=== PATIENT | female | born 1950 | race Caucasian/White ===

== ENCOUNTER 2017-10-19 18:45 | Emergency (ER) | payer MEDICARE, BC ==
[~2017-10-19] VITALS: Ht 162.6 cm; Wt 98.9 kg
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
--- NOTE | 2017-10-19 19:20 | NUR ---
AT BEDSIDE FOR EVAL.
--- NOTE | 2017-10-19 19:54 | NUR ---
XRAY AT BEDSIDE.
--- NOTE | 2017-10-19 20:23 | NUR ---
PT TO CT VIA WC. VSS.
[2017-10-19] MEDS ORDERED: TRAMADOL HCL 50 MG TABLET PO ONE (20:30)
[2017-10-19 20:51] LABS: APPEARANCE,URINE Clear (CLEAR); BILIRUBIN,URINE Negative (NEGATIVE); BLOOD, URINE Trace-lysed Ery/uL (NEGATIVE); COLOR,URINE Yellow (YELLOW); KETONES,URINE Negative (NEGATIVE); LEUKOCYTE ESTERASE ,URINE Negative (NEGATIVE); NITRITE, URINE Negative (NEGATIVE); PH,URINE 5.5 (5.0-8.0); PROTEIN,URINE Negative (NEGATIVE); UGLUCOSE Negative (NEGATIVE); UROBILINOGEN,URINE 0.2 EU/dL (0.2)
[2017-10-19 21:00] LABS: BACTERIA,URINE Rare /HPF (None Seen); SQUAMOUS EPITHELIAL CELL,UR Rare /HPF (None Seen); WBC,URINE NONE SEEN /HPF (0-3)
--- NOTE | 2017-10-19 21:14 | NUR ---
PT SPEAKING WITH FRIEND AT BEDSIDE. VSS. AWAITING DISPOSTION FROM MD.
--- NOTE | 2017-10-19 21:48 | NUR ---
Patient discharged to home in stable condition. Written and verbal after care instructions given. Patient verbalizes understanding of instruction. Patient ambulatory with a steady gait.
[2017-10-19 21:49] VITALS: BP 148/73
== END 2017-10-19 21:50 | disposition other institution (70) ==
LOC: ER 18:49
DX: S63.502A Unspecified sprain of left wrist, initial encounter (principal); S09.90XA Unspecified injury of head, initial encounter; V89.2XXA Person injured in unspecified motor-vehicle accident, traffic, initial encounter; Y93.89 Activity, other specified; Y92.411 Interstate highway as the place of occurrence of the external cause; Y99.8 Other external cause status
CPT/HCPCS: 70450-TC; 73110; 81000-TC; A4606; Z7610

== ENCOUNTER 2019-01-15 19:39 | Inpatient (IN) | payer MEDICARE, BC ==
[~2019-01-15] VITALS: Ht 167.6 cm; Wt 93.4 kg
--- NOTE | 2019-01-15 20:00 | NUR ---
PT CAME TO EMERGENCY DEPT. COMPLAINING OF SOB, EPISTAXIS FOLLOWING CHEMOTHERAPY. PT AXO4. PT PUT ON THE MONITOR AND PULSE OX. PENDING EVAL FROM ER .
--- NOTE | 2019-01-15 20:08 | NUR ---
ANJU GARZON AT BEDSIDE.
--- NOTE | 2019-01-15 20:27 | NUR ---
EKG AT BEDSIDE.
[2019-01-15] MEDS ORDERED: IV NS 0.9% 1,000 ML BAG IV ONE (20:30)
--- NOTE | 2019-01-15 20:41 | NUR ---
SALES RECEPTIONIST AT BEDSIDE.
[2019-01-15 20:45] LABS: BASOPHILS # (AUTO) 0.1 /CMM (0.0-0.2); BASOPHILS % (AUTO) 1.2 % (0.0-2.0); EOSINOPHILS % (AUTO) 0.8 % (0.0-6.0); HEMATOCRIT 29 % (33-45); HEMOGLOBIN 9.6 g/dL (11.5-14.8); LYMPHOCYTES # (AUTO) 1.3 /CMM (0.8-4.8); LYMPHOCYTES % (AUTO) 14.3 % (20.0-44.0); MEAN CORPUSCULAR HGB CONC 34 g/dl (31.0-36.0); MEAN CORPUSCULAR VOLUME 98 fL (82-100); MONOCYTES # (AUTO) 1.1 /CMM (0.1-1.30); MONOCYTES % (AUTO) 11.8 % (2.0-12.0); NEUTROPHILS # (AUTO) 6.6 /CMM (1.8-8.9); NEUTROPHILS % (AUTO) 71.9 % (43.0-81.0); PLATELET COUNT (AUTO) 241 /CMM (150-450); RED BLOOD CELL COUNT(AUTO) 2.94 MIL/uL (4.0-5.2); WHITE BLOOD COUNT (AUTO) 9.2 K/uL (4.3-11.0)
--- NOTE | 2019-01-15 20:45 | NUR ---
PT REFUSES CHEST XRAY. ER AWARE.
[2019-01-15 20:57] LABS: CALCIUM, SERUM 8.9 mg/dL (8.5-10.1); CARBON DIOXIDE 29 mmol/L (21-32); CHLORIDE 105 mmol/L (98-107); CREATININE 0.9 mg/dL (0.6-1.3); GLUCOSE 117 mg/dL (74-106); POTASSIUM 4.3 mmol/L (3.5-5.1); SODIUM SERUM 141 mmol/L (136-145); UREA NITROGEN, BLOOD 11 mg/dL (7-18)
--- NOTE | 2019-01-15 21:00 | NUR ---
PT REFUSING CT W CONTRAST. ER AWARE.
[2019-01-15 21:11] LABS: B-TYPE NATRIURETIC PEPTIDE 104 PG/ML (0-125)
[2019-01-15] MEDS ORDERED: CT SWABBABLE VALVE TRANS SET 1 EA INFUS.SET MC ONE (21:17)
[2019-01-15] MEDS ORDERED: IOHEXOL-350 100 ML VIAL IV ONE (21:17)
[2019-01-15] MEDS ORDERED: IV NS 0.9% 250 ML IV ONE (21:17)
--- NOTE | 2019-01-15 22:41 | NUR ---
Frantz fu in [facility] - 01/15/19 at 2242 by ARTI SPOKE TO [facility], WAITING ON ADMITTING DR ZALDIVAR TO ACCEPT
--- NOTE | 2019-01-15 22:52 | NUR ---
Frantz fu in [facility] - 01/15/19 at 2252 by ARTI CALLED [facility] FOR BED. AWAITING HER CALL WITH A BED
--- NOTE | 2019-01-15 22:53 | NUR ---
CALLED [facility] FOR A BED. AWAITING HER CALL
--- NOTE | 2019-01-15 23:21 | NUR ---
REPORT GIVEN TO ALLISON KUMAR RN FOR CHAS.
[2019-01-15 23:45] VITALS: BP 168/87
[2019-01-16] VITALS: BP 141/78
[2019-01-16] MEDS ORDERED: HYDROCODONE/APAP 5/325MG 1 EACH TABLET PO PRN (01:00)
[2019-01-16] MEDS ORDERED: ZOLPIDEM TARTRATE 5 MG TABLET PO PRN (01:00)
[2019-01-16] MEDS ORDERED: ACETAMINOPHEN 325 MG TABLET PO PRN ×2 (01:00→02:00)
[2019-01-16] MEDS ORDERED: MAGNESIUM HYDROXIDE 30 ML UDC PO PRN (01:00)
[2019-01-16] MEDS ORDERED: ONDANSETRON HCL/PF 4 MG/2 ML VIAL IVP PRN (01:00)
[2019-01-16] MEDS ORDERED: Z GUARD REMEDY 2 OZ OINT TP PRN (01:00)
[2019-01-16] MEDS ORDERED: DOCUSATE SODIUM 100 MG CAPSULE PO PRN (02:00)
[2019-01-16 04:00] VITALS: BP 125/70
[2019-01-16] MEDS ORDERED: LORATADINE 10 MG TABLET ONE (06:12)
[2019-01-16] MEDS: LORATADINE 10 MG TABLET PO SCH (06:15)
[2019-01-16 06:40] LABS: BASOPHILS # (AUTO) 0.1 /CMM (0.0-0.2); BASOPHILS % (AUTO) 0.6 % (0.0-2.0); EOSINOPHILS % (AUTO) 0.6 % (0.0-6.0); HEMATOCRIT 27 % (33-45); HEMOGLOBIN 9.5 g/dL (11.5-14.8); LYMPHOCYTES % (AUTO) 10.1 % (20.0-44.0); MEAN CORPUSCULAR HGB CONC 35 g/dl (31.0-36.0); MEAN CORPUSCULAR VOLUME 98 fL (82-100); MONOCYTES % (AUTO) 10.4 % (2.0-12.0); NEUTROPHILS # (AUTO) 7.4 /CMM (1.8-8.9); NEUTROPHILS % (AUTO) 78.3 % (43.0-81.0); PLATELET COUNT (AUTO) 204 /CMM (150-450); RED BLOOD CELL COUNT(AUTO) 2.79 MIL/uL (4.0-5.2); WHITE BLOOD COUNT (AUTO) 9.5 K/uL (4.3-11.0)
--- NOTE | 2019-01-16 06:45 | NUR ---
EMERGENCY MANAGEMENT CONSULTANT NOTES AWAKE & RESPONSIVE. NOT IN ANY DISTRESS. NO SOB NOTED. DENIES ANY PAIN OR DISCOMFORT AT THIS TIME. ON TELE SR @ 68 WITH IV-HL PATENT & INTACT. CALL LIGHT WITHIN REACH. BED IN LOWEST POSITION. SR UP X 2 FOR SAFETY. WILL ENDORSE TO NEXT SHIFT.
[2019-01-16 06:50] LABS: CALCIUM, SERUM 8.9 mg/dL (8.5-10.1); CREATININE 0.9 mg/dL (0.6-1.3); PHOSPHORUS 4.4 mg/dL (2.5-4.9); POTASSIUM 4.5 mmol/L (3.5-5.1)
[2019-01-16 08:00] VITALS: BP 138/73
[2019-01-16] MEDS ORDERED: OCTR50AM IJ (08:08)
[2019-01-16] MEDS ORDERED: [UNRECOGNIZED DRUG - CODE] IV (08:08)
[2019-01-16] MEDS ORDERED: CARB10VI IV (08:08)
[2019-01-16] MEDS ORDERED: ROSU5TAB12 PO (08:08)
[2019-01-16] MEDS ORDERED: PEGF6SYR SQ (08:08)
--- NOTE | 2019-01-16 08:20 | NUR ---
PT. REFUSING CTA CHEST AND CHEST XRAY CHUY IS AWARE.
[2019-01-16] MEDS: ENSURE ENLIVE 237 ML LIQUID (VANILLA) PO SCH (08:23)
--- NOTE | 2019-01-16 08:44 | NUR ---
rn note pt refused this am CXR and ct scan stating "I do not want to get contrast twice, I prefer to do xray and cat scan in [facility]". will notify md and follow up.
--- NOTE | 2019-01-16 10:04 | NUR ---
WOUND CARE CONSULT: PT PRESENTS AMBULATORY AND CONTINENT WITH TRANSPARENT DRESSING TO RT CHEST PORTACATH SITE. PT STATES THAT SHE REQUESTED TRANSPARENT DRESSING AND REFUSED TO HAVE IT REMOVED. DEFER TO MD FOR PORTACATH SITE. NO DRAINAGE NOTED. WILL SEE PRN.
[2019-01-16 16:00] VITALS: BP 140/73
--- NOTE | 2019-01-16 16:00 | NUR ---
RN NOTE PT'S IV SITE WAS REMOVED EARLIER DUE TO PAIN, AND LATER REFUSED NEW IV INSERTION. PT HAS ADEQUATE PO INTAKE. WILL MONITOR PT.
[2019-01-16] MEDS: IV NS 0.9% 1,000 ML IV PRN (18:35)
--- NOTE | 2019-01-16 19:24 | NUR ---
MS RN RECEIVE PT IN BED. A/O X 3. RESPIRATIONS EVEN AND UNLABORED, NO SOB NOTED, NO DISTRESS, SAFETY MEASURES IN PLACE. WILL CONTINUE TO MONITOR.
[2019-01-16 20:00] VITALS: BP 132/60
--- NOTE | 2019-01-16 22:10 | NUR ---
PT REFUSED IV INSERTION, ASKED PT MULTIPLE TIMES PT STILL REFUSED "PER PT I DONT NEED IT" DESPITE EXPLAINING RISKS AND BENEFITS. HAS ADEQUATE PO INTAKE. EDUCATED TO STAY HYDRATED. VERBALIZED UNDERSTANDING. HOSPITALIST AWARE
[2019-01-17 05:00] VITALS: BP 116/69
--- NOTE | 2019-01-17 05:00 | NUR ---
OFFERED IV INSERTION AGAIN PT AGREED. INSERTED IV TO LFA 22 INTACT AND PATENT.
[2019-01-17] MEDS: IV NS 0.9% 1,000 ML IV PRN (05:18)
--- NOTE | 2019-01-17 06:12 | NUR ---
RN CLOSING NOTE ASLEEP AND EASILY AWAKEN.. NOT IN DISTRESS, STABLE. NEEDS ATTENDED AND ANTICIPATED, KEPT CLEAN AND DRY AND COMFORT. REPOSITIONED EVERY 2 HOURS. GOOD SKIN CARE PROVIDED, NURSING CARE RENDERED, SAFETY MEASURES IN PLACE, BED IN LOW LOCKED POSITION, CALL LIGHT WITHIN EASY REACH. ENDORSE TO NEXT SHIFT CONTINUITY OF CARE.
--- NOTE | 2019-01-17 07:00 | NUR ---
RN OPENING NOTES PT AWAKE AND RESTING IN BED. NO COMPLAINTS OF PAIN, SOB OR DISTRESS AT THIS TIME. PT REQUESTED CLARITIN, WILL FOLLOW UP. PT HAS A RIGHT CHEST WALL RICK CATH. PT REQUESTING TRANSFER TO [facility] OR WILL LEAVE HOSPITAL AMA. INFORMED PT THAT CASE MANAGEMENT WILL FOLLOW UP WITH TRANSFER TO [facility]. SAFETY PRECAUTIONS IN PLACE, BED IN LOWEST LOCKED POSITION, X2 SIDERAILS UP AND CALL LIGHT WITHIN REACH WILL CONTINUE TO MONITOR.
[2019-01-17] MEDS: LORATADINE 10 MG TABLET PO SCH (07:52)
[2019-01-17 08:00] VITALS: BP 128/52
[2019-01-17] MEDS: ENSURE ENLIVE 237 ML LIQUID (VANILLA) PO SCH (09:50)
--- NOTE | 2019-01-17 11:20 | NUR ---
RN NOTES PT VITAL SIGNS STABLE WHEN PATIENT LEFT THE UNIT AMA. PER ALETA KANG NP, HE WOULD LIKE TO TREAT PT FOR ELEVATED D DIMER LAB RESULT. PT STATED THAT SHE WOULD LIKE TO BE TREATED AT [facility], EXPLAINED THAT THE PATIENT MAY HAVE TO WAIT AWHILE FOR A BED AT [facility], PT DECIDED TO LEAVE AGAINST MEDICAL ADVICE. PT SIGNED AMA FORM. ALL DISCHARGE PAPER WORK SIGNED, COPIED AND SENT HOME WITH PATIENT. PATIENT REFUSED PHOTOGRAPH OF RIGHT CHEST WALL PORTACATH. IV REMOVED AT DISCHARGE. PT ACCOMPANIED OFF THE UNIT VIA GURNEY BY RN, AND STUDENT NURSE AT 1120. PATIENT'S SISTER KRYSTLE PICKED PATIENT UP AND DROVE HOME IN PRIVATE CAR.
== END 2019-01-17 11:20 | disposition left against medical advice (07) | DRG 176 ==
LOC: ER 19:54 → TELE1 23:37 → MEDSG1 01-16 08:50
PROVIDERS: ADMIT Nurse Practitioner Acute Care; ATTEND Nurse Practitioner Acute Care
DX: I26.99 Other pulmonary embolism without acute cor pulmonale (principal); C56.9 Malignant neoplasm of unspecified ovary; D68.59 Other primary thrombophilia; C48.2 Malignant neoplasm of peritoneum, unspecified; D63.8 Anemia in other chronic diseases classified elsewhere; Z90.710 Acquired absence of both cervix and uterus; Z86.711 Personal history of pulmonary embolism; R04.0 Epistaxis; K59.00 Constipation, unspecified; Z98.890 Other specified postprocedural states; Z79.899 Other long term (current) drug therapy; Z85.44 Personal history of malignant neoplasm of other female genital organs; Z92.21 Personal history of antineoplastic chemotherapy; Z79.01 Long term (current) use of anticoagulants; E66.9 Obesity, unspecified; Z68.33 Body mass index [BMI] 33.0-33.9, adult; C57.00 Malignant neoplasm of unspecified fallopian tube
CPT/HCPCS: 36415; 80048-TC; 80061-TC; 83735-TC; 83880; 84100-TC; 84484-TC; 85025-TC; 85378-TC; 87081-TC; 93307-TC; G0378; J7030; J7050; Q9967

== ENCOUNTER 2020-03-27 17:57 | Inpatient (IN) | payer MEDICARE, BC ==
[~2020-03-27] VITALS: Ht 167.6 cm; Wt 77.6 kg
[~2020-03-27 17:57] MED LIST: CARB10VI IV; OCTR50AM IJ; PEGF6SYR SQ; ROSU5TAB13 PO; [UNRECOGNIZED DRUG - CODE] IV
--- NOTE | 2020-03-27 18:00 | NUR ---
mello, from home, had syncopal episode, nausea, and weak. Patient a/ox4, breathing even and unlabored, no sob noted. Needs attended. Kept comfortable.
[2020-03-27] MEDS ORDERED: ONDANSETRON HCL/PF 4 MG/2 ML VIAL ONE (18:13)
[2020-03-27 18:27] LABS: LYMPHOCYTES # (AUTO) 0.4 /CMM (0.8-4.8); MONOCYTES # (AUTO) 0.1 /CMM (0.1-1.30); NEUTROPHILS # (AUTO) 0.6 /CMM (1.8-8.9); NEUTROPHILS % (AUTO) 50.4 % (43.0-81.0)
[2020-03-27] MEDS ORDERED: IV NS 0.9% 1,000 ML BAG IV ONE (18:30)
[2020-03-27] MEDS ORDERED: ONDANSETRON HCL/PF 4 MG/2 ML VIAL IVP ONE (18:30)
[2020-03-27 18:31] LABS: BASOPHILS % (AUTO) 1.1 % (0.0-2.0); EOSINOPHILS % (AUTO) 0.9 % (0.0-6.0); HEMATOCRIT 29 % (33-45); HEMOGLOBIN 10.3 g/dL (11.5-14.8); LYMPHOCYTES % (AUTO) 40.2 % (20.0-44.0); MEAN CORPUSCULAR HGB CONC 35 g/dl (31.0-36.0); MEAN CORPUSCULAR VOLUME 107 fL (82-100); MONOCYTES % (AUTO) 7.4 % (2.0-12.0); RED BLOOD CELL COUNT(AUTO) 2.73 MIL/uL (4.0-5.2)
[2020-03-27 18:35] LABS: PLATELET COUNT (AUTO) 25 /CMM (150-450)
[2020-03-27 18:36] LABS: WHITE BLOOD COUNT (AUTO) 1.1 K/uL (4.3-11.0)
[2020-03-27 18:39] LABS: CARBON DIOXIDE 25 mmol/L (21-32); CHLORIDE 102 mmol/L (98-107); CREATININE 0.9 mg/dL (0.6-1.3); GLUCOSE 134 mg/dL (74-106); POTASSIUM 4.4 mmol/L (3.5-5.1); SODIUM SERUM 134 mmol/L (136-145); UREA NITROGEN, BLOOD 18 mg/dL (7-18)
--- NOTE | 2020-03-27 18:40 | NUR ---
patient refused CT scan, explained risks and benefits. Dr. Somers made aware.
[2020-03-27 18:45] LABS: ALANINE AMINOTRANSFERASE 21 U/L (12-78); ALBUMIN 3.4 g/dL (3.4-5.0); ALKALINE PHOSPHATASE 108 U/L (46-116); ASPARTATE AMINOTRANSFERASE 24 U/L (15-37); BILIRUBIN,DIRECT 0.1 mg/dL (0.0-0.2); BILIRUBIN,TOTAL 0.8 mg/dL (0.2-1.0); TOTAL PROTEIN, SERUM 6.8 g/dL (6.4-8.2)
--- NOTE | 2020-03-27 19:15 | NUR ---
REPORT RECEIVED FROM MILES CA FOR CHAS
[2020-03-27 20:00] VITALS: BP 131/75
--- NOTE | 2020-03-27 20:05 | NUR ---
BRANDON SILVERIO SENIOR HARDWARE DESIGN ENGINEER AT BEDSIDE FOR EVALUATION
[2020-03-27 20:11] LABS: BAND % (MANUAL) 4 % (0.0-5.0); EOSINOPHILS % (MANUAL) 2 % (0-4); LYMPHOCYTES % (MANUAL) 48 % (16-48); NEUTROPHILS % (MANUAL) 46 (42-76)
[2020-03-27] MEDS ORDERED: IV NS 0.9% 1,000 ML IV PRN (20:33)
--- NOTE | 2020-03-27 20:35 | NUR ---
208-2 [facility]
--- NOTE | 2020-03-27 20:36 | NUR ---
COVID SWAB SENT TO LAB
--- NOTE | 2020-03-27 20:50 | NUR ---
REPORT GIVEN TO MILES BONDS
[2020-03-27 21:00] VITALS: BP 133/79
[2020-03-27] MEDS ORDERED: MAG HYDROX/AL HYDROX/SIMETH 30 ML UDC PO PRN (21:00)
[2020-03-27] MEDS ORDERED: MAGNESIUM HYDROXIDE 30 ML UDC PO PRN (21:00)
[2020-03-27] MEDS ORDERED: MORPHINE SULFATE INJ 2 MG/ML DISP.SYRIN IV PRN (21:00)
[2020-03-27] MEDS ORDERED: ACETAMINOPHEN 325 MG TABLET PO PRN (21:00)
[2020-03-27] MEDS ORDERED: ONDANSETRON HCL/PF 4 MG/2 ML VIAL IVP PRN (21:00)
[2020-03-27] MEDS ORDERED: HYDROCODONE/APAP 5/325MG 1 EACH TABLET PO PRN (21:00)
--- NOTE | 2020-03-27 21:02 | NUR ---
PT TAKEN TO ROOM IN STABLE CONDITION
--- NOTE | 2020-03-27 21:20 | NUR ---
RN NOTES: ON REVERSE ISOLATION AND RO COVID. PPE UTILIZED.
[2020-03-27 21:30] VITALS: BP 133/79
--- NOTE | 2020-03-27 22:00 | NUR ---
ADMISSION NOTES: RECEIVED REPORT FROM IZABEL AQUINO, PT BROUGHT TO THE UNIT VIA GURNEY AT 2105. TRANSFERRED TO BED. PT A/O X4, ON RA, RESPIRATIONS EVEN AND UNLABORED, NOTED NON PRODUCTIVE COUGH. ADMISSION QUESTIONS ANSWERED BY PT. COMPLAINING OF HEAD ACHE AND FEELING WEAK. DISCUSSED PLAN OF CARE TO PT, OFFERED TYLENOL FOR HEAD ACHE, BUT PT REFUSING MEDICATION, ALSO REFUSING IVF, EDUCATION PROVIDED TO PT. LAST CHEMO 2WEEKS AGO MARCH 08, 2020. PT LIVES WITH HER SISTER. PREVIOUS CHEMO IN [facility]. PLACED ON ISOLATION FOR COVID RO AND REVERSE ISO DUE TO LOW WBC. INVENTORY OF BELONGINGS COMPLETED BY RAIN RIOS, TELE MONITORING PLACED, ON SINUS RHYTHM HR 65. IV ACCESS PATENT AND FLUSHING WELL, ON HL. SKIN ASSESSMENT PERFORMED NO SKIN ISSUES NOTED. PT HAS PORT IN PLACED ON RCW FOR CHEMOTHERAPY. VS TAKEN AND RECORDED, ORIENTED PT TO UNIT AND POLICY, ROUNDING, USE OF CALL LIGHT SYSTEM. PROVIDED WITH SNACKS. INITIAL TEMP IS 100.1, RECHECK AT THIS TIME AND ITS 99.1, (ORAL) OFFERED TYLENOL BUT PT REFUSED. SAFETY PRECAUTIONS FOR FALL INITIATED, CALL LIGHT IN REACH, WILL CONTINUE MONITORING PT.
--- NOTE | 2020-03-27 22:40 | NUR ---
RN NOTES: PT REFUSING SCD AND REFUSED T BE HOOKED UP TO IVF, EDUCATION PROVIDED TO PT. A/O X4, ABLE TO MAKE DECISION FOR HERSELF.
[2020-03-28] VITALS: BP 130/78
[2020-03-28 04:00] VITALS: BP 131/75
--- NOTE | 2020-03-28 05:00 | NUR ---
RN NOTES: RECEIVED CALL FROM PT'S SISTERKRYSTLE LAST NIGHT. SPOKED WITH KRYSTLE 3X SINCE PT'S ARRIVAL TO THE UNIT. SISTER CALLING Q2-3HRS FOR UPDATE. KRYSTLE DOESNT WANT TO LEAVE HER NUMBER SO WE CAN CALL HER ON THE TIME WERE AVAILABLE, SIGNIFICANT OTHERS CALLING ON TIME WE ARE PROVIDING AM CARE TO EACH PATIENT WHICH REQUIRES AMPLE AMOUNT OF TIME PT IN THE UNIT MOSTLY BED BOUND AND NEEDS MAXIMUM ASSIST WITH ADLS INCLUDING BATHING. KRYSTLE, CALLING WHEN ASSIGNED RN IS PROVIDING AM CARE TO OTHER PATIENT, EXPLAINED THAT SHE CAN CALL BACK AGAIN AFTER 30MINS OR JUST LEAVE HER NUMBER.
--- NOTE | 2020-03-28 07:04 | NUR ---
END OF SHIFT REPORT: PT REMAINS ON RA, SPO2 95-98%, STILL WITH NON PRODUCTIVE COUGH. ASSISTED PT TO THE BATHROOM 3X THROUGHOUT THE SHIFT. AFEBRILE. REMAINS ON SINUS RHYTHM HR 73. P'S SISTER, KRYSTLE BEEN CALLING Q4HRS FOR UPDATE. PROVIDED UPDATE REGARDING PT'S CONDITION INCLUDING VITAL SIGNS. IV ACCESS REMAINS PATENT AND FLUSHING WELL, ON HL, NO S/S OF IV INFILTRATION NOTED, REFUSED IVF DESPITE PROVIDING EDUCATION. FOR ONCO CONSULT. VS REMAINS STABLE, NEEDS ATTENDED. SAFETY PRECAUTIONS FOR FALL REMAINS ENGAGED, CALL LIGHT IN REACH, ROUNDING PERFORMED, PPE UTILIZED, ENDORSED TO DAY MILES MCKEON FOR CHAS.
--- NOTE | 2020-03-28 07:05 | NUR ---
HOME HEALTH CAREGIVER NOTES PATIENT IN BED ALERT ORIENTED X 4 . NO ACUTE DISTRESS NOTED. BREATHING UNLABORED. NO SOB NOTED. IV ACCESS PATENT AND INTACT, NO REDNESS, NO SWELLING NOTED. PATIENT REFUSED IVF DESPITE OF EXPLANATION OF RISKS AND BENEFITS. SAFETY MEASURES IN PLACE. CALL LIGHT WITHIN REACH. WILL CONTINUE TO MONITOR ACCORDINGLY.
[2020-03-28 07:20] LABS: ALBUMIN 3.1 g/dL (3.4-5.0); BILIRUBIN,TOTAL 0.8 mg/dL (0.2-1.0); CALCIUM, SERUM 8.6 mg/dL (8.5-10.1); MAGNESIUM 1.9 mg/dL (1.8-2.4); PHOSPHORUS 3.1 mg/dL (2.5-4.9); POTASSIUM 4.3 mmol/L (3.5-5.1); TOTAL PROTEIN, SERUM 6.5 g/dL (6.4-8.2)
[2020-03-28 07:22] LABS: THYROID STIMULATING HORMONE 0.81 uIU/mL (0.358-3.74)
[2020-03-28 07:44] LABS: BASOPHILS % (AUTO) 0.6 % (0.0-2.0); EOSINOPHILS % (AUTO) 1.3 % (0.0-6.0); HEMATOCRIT 28 % (33-45); HEMOGLOBIN 9.7 g/dL (11.5-14.8); LYMPHOCYTES # (AUTO) 0.6 /CMM (0.8-4.8); LYMPHOCYTES % (AUTO) 41.6 % (20.0-44.0); MEAN CORPUSCULAR HGB CONC 34 g/dl (31.0-36.0); MEAN CORPUSCULAR VOLUME 107 fL (82-100); MONOCYTES # (AUTO) 0.1 /CMM (0.1-1.30); MONOCYTES % (AUTO) 7.6 % (2.0-12.0); NEUTROPHILS # (AUTO) 0.7 /CMM (1.8-8.9); NEUTROPHILS % (AUTO) 48.9 % (43.0-81.0); RED BLOOD CELL COUNT(AUTO) 2.62 MIL/uL (4.0-5.2)
[2020-03-28] MEDS ORDERED: LORA-258 PO (07:44)
--- NOTE | 2020-03-28 08:00 | NUR ---
MS RN NOTES MRSA SWAB DONE PROPERLY STORED AND CALLED LABORATORY FOR DIRECT CHILL CASTING OPERATOR SAID THEY WILL COME TO PICK IT UP.
[2020-03-28 08:18] LABS: PLATELET COUNT (AUTO) 17 /CMM (150-450); WHITE BLOOD COUNT (AUTO) 1.5 K/uL (4.3-11.0)
--- NOTE | 2020-03-28 08:45 | NUR ---
MS RN NOTES RECEIVED CRITICAL LABORATORY RESULT FROM MARTIN, wbc 1.5, platelet 17, NOTIFIED BUFFING AND SUEDING MACHINE OPERATOR ADÁN PRINGLE, NO NEW ORDERS MADE AT THIS TIME.
[2020-03-28] MEDS: ATORVASTATIN 10 MG TABLET PO SCH (09:00)
--- NOTE | 2020-03-28 09:00 | NUR ---
MS RN NOTES PATIENT REFUSED ATORVASTATIN DESPITE OF EXPLANATION OF RISKS AND BENEFITS.
[2020-03-28 10:10] LABS: BAND % (MANUAL) 5 % (0.0-5.0); EOSINOPHILS % (MANUAL) 3 % (0-4); LYMPHOCYTES % (MANUAL) 40 % (16-48); MONOCYTES % (MANUAL) 7 % (0-11.0); NEUTROPHILS % (MANUAL) 45 (42-76)
--- NOTE | 2020-03-28 12:15 | NUR ---
MS RN NOTES PATIENT TRANSFER TO ROOM 329 REPORT GIVEN TO DONG RN , ALERT ORIENTED X 4. NO ACUTE DISTRESS NOTED. ALL BELONGINGS TAKEN WITH THE PATIENT.
--- NOTE | 2020-03-28 12:20 | NUR ---
RN NOTE THE PATIENT IS RECEIVED IN BED FROM MS2. THE PATIENT ALERT AND ORIENTED X4. DENIES PAIN AT THIS TIME. IN ROOM AIR AND DENIES SOB. RESPIRATION REGULAR AND UNLABORED. THE PATIENT IN NO APPARENT DISTRESS. AFEBRILE. LEFT HAND G 18 PATENT AND SALINE LOCKED. BED LOW AND LOCKED. SIDE RAILS UP X3. CALL LIGHT WITHIN REACH. WILL CONTINUE TO MONITOR.
[2020-03-28] MEDS ORDERED: CEFEPIME 1 GM VIAL IM SCH (12:30)
[2020-03-28] MEDS: CEFEPIME 2 GM in IV D5W 100 ML IV SCH (13:59)
[2020-03-28] MEDS: TBO-FILGRASTIM 480 MCG/0.8 ML ML SQ SCH (14:00)
--- NOTE | 2020-03-28 14:00 | NUR ---
RN NOTE GRANIX AND MAXIPIME ARE ADMINISTERED LATER THAN SCHEDULED TIME DUE TO PHARMACY LATE DELIVERY.
[2020-03-28 14:15] LABS: FERRITIN 751 ng/mL (8-388)
[2020-03-28 14:18] LABS: C-REACTIVE PROTEIN < 0.2 mg/dL (0.0-0.9)
[2020-03-28 15:51] LABS: APPEARANCE,URINE CLEAR (CLEAR); BILIRUBIN,URINE NEGATIVE (NEGATIVE); BLOOD, URINE NEGATIVE Ery/uL (NEGATIVE); COLOR,URINE YELLOW (YELLOW); KETONES,URINE NEGATIVE (NEGATIVE); LEUKOCYTE ESTERASE ,URINE NEGATIVE (NEGATIVE); NITRITE, URINE NEGATIVE (NEGATIVE); PH,URINE 5.5 (5.0-8.0); PROTEIN,URINE NEGATIVE (NEGATIVE); UGLUCOSE NEGATIVE (NEGATIVE); UROBILINOGEN,URINE 0.2 EU/dL (0.2)
[2020-03-28 16:00] VITALS: BP 136/70
--- NOTE | 2020-03-28 16:59 | NUR ---
RN NOTE THE PATIENT IS NON-COMPLIANT WITH IV HYDRATION ORDER OF NORMAL SALINE AT 75ML/HR DESPITE EXPLAINING RISKS AND BENEFITS MULTIPLE TIMES.
--- NOTE | 2020-03-28 19:05 | NUR ---
RN NOTE THE PATIENT ALERT AND ORIENTED X4. DENIES PAIN. IN ROOM AIR AND SATURATION IS AT 96%. DENIES SOB. THE PATIENT IN NO APPARENT DISTRESS. LEFT HAND G 18 PATENT AND SALINE LOCKED. PATIENT NON-COMPLIANT WITH IV HYDRATION ORDER AND REFUSING DESPITE EXPLAINING RISKS AND BENEFITS. BED LOW AND LOCKED. SIDE RAILS UP X2. CALL LIGHT WITHIN REACH. WILL ENDORSE TO NIGHTS SHIFT.
[2020-03-28 20:00] VITALS: BP 133/71
--- NOTE | 2020-03-28 20:10 | NUR ---
RN OPENING NOTE RECEIVED PATIENT FROM AM NURSE. IN STABLE CONDITION. A/O X4, NO RESPIRATORY DISTRESS NOTED. ON ROOM AIR SATURATING WELL, ON TELE WITH SR NOTED, HR IN THE 80S. PATIENT IS ABLE TO AMBULATE, ABLE TO MAKE NEEDS KNOWN. IV ON LEFT HAND G18, INTACT, PATENT AND FLUSHED WELL. PATIENT IS REFUSING IV FLUIDS, NON COMPLIANT. EXPLAINED RISKS AND BENEFITS, STILL REFUSING. ALL PATIENT NEEDS MET, CALL LIGHT WITHIN REACH, WILL CONTINUE TO MONITOR.
--- NOTE | 2020-03-28 22:52 | NUR ---
RN NOTE ENDORSED PATIENT TO PETER FOR CONTINUITY OF CARE.
--- NOTE | 2020-03-28 23:00 | NUR ---
RN NOTES RECEIVED PATIENT FROM CHRISTOPHER AQUINO. PATIENT IN BED SLEEPING. ON ROOM AIR, WITH NON-LABORED BREATHING. ON ISOLATION PRECAUTION. PATIENT EASILY AWAKEN BY NAME AND LIGHT TOUCH. SKIN WARM AND DRY TO TOUCH. IV ACCESS ON LEFT HAND. SAFETY PRECAUTIONS IN PLACE WITH BED IN THE LOWEST POSITION, BED LOCKED, BILATERAL SIDE RAILS UP, AND CALL LIGHT WITHIN EASY REACH OF THE PATIENT. WILL CONTINUE TO MONITOR PATIENT.
[2020-03-29] MEDS: CEFEPIME 2 GM in IV D5W 100 ML IV SCH ×2 (00:46→13:01)
--- NOTE | 2020-03-29 06:58 | NUR ---
RN NOTES PATIENT IN BED SLEEPING, EASILY AWAKEN BY NAME AND LIGHT TOUCH. ON ROOM AIR, WITH NO SIGNS OF RESPIRATORY DISTRESS, WITH EVEN NON-LABORED BREATHING. PATIENT SKIN KEPT CLEAN AND DRY. IV ACCESS INTACT AND PATENT ON LEFT HAND 18 GAUGE. MET ALL OF PATIENT'S NEEDS. DENIES PAIN AND DISCOMFORT AT THIS TIME. SAFETY PRECAUTIONS IN PLACE WITH BED IN THE LOWEST POSITION, BED LOCKED, BILATERAL SIDE RAILS UP AND CALL LIGHT WITHIN EASY REACH OF THE PATIENT. WILL ENDORSE PLAN OF CARE TO UPCOMING DAYSHIFT NURSE.
[2020-03-29 07:31] LABS: BASOPHILS % (AUTO) 0.4 % (0.0-2.0); EOSINOPHILS % (AUTO) 1.8 % (0.0-6.0); HEMATOCRIT 27 % (33-45); HEMOGLOBIN 9.5 g/dL (11.5-14.8); LYMPHOCYTES # (AUTO) 0.5 /CMM (0.8-4.8); LYMPHOCYTES % (AUTO) 30.1 % (20.0-44.0); MEAN CORPUSCULAR HGB CONC 36 g/dl (31.0-36.0); MEAN CORPUSCULAR VOLUME 108 fL (82-100); MONOCYTES # (AUTO) 0.1 /CMM (0.1-1.30); MONOCYTES % (AUTO) 7.8 % (2.0-12.0); NEUTROPHILS # (AUTO) 1.1 /CMM (1.8-8.9); NEUTROPHILS % (AUTO) 59.9 % (43.0-81.0); RED BLOOD CELL COUNT(AUTO) 2.49 MIL/uL (4.0-5.2)
[2020-03-29 07:48] LABS: PLATELET COUNT (AUTO) 16 /CMM (150-450); WHITE BLOOD COUNT (AUTO) 1.8 K/uL (4.3-11.0)
[2020-03-29 07:53] LABS: CALCIUM, SERUM 8.9 mg/dL (8.5-10.1); CREATININE 0.9 mg/dL (0.6-1.3); POTASSIUM 4.2 mmol/L (3.5-5.1)
[2020-03-29 08:00] VITALS: BP 122/73
[2020-03-29 08:07] LABS: EOSINOPHILS % (MANUAL) 1 % (0-4); LYMPHOCYTES % (MANUAL) 28 % (16-48); MONOCYTES % (MANUAL) 9 % (0-11.0); NEUTROPHILS % (MANUAL) 62 (42-76)
--- NOTE | 2020-03-29 08:10 | NUR ---
M/S RN NOTES PATIENT AWAKE IN BED, NO RESPIRATORY DISTRESS, C/O PAIN ON THE LEFT HAND, IV SITE WITH NO REDNESS OR INFILTRATION. WILL INSERT NEW IV SITE PER PATIENT REQUEST. SKIN WARM TO TOUCH, REVERSE ISOLATION MAINTAINED. PATIENT'S NEEDS ATTENDED, BED ON LOWEST LOCKED POSITION, CALL LIGHT WITHIN REACH. WILL CONTINUE TO MONITOR.
[2020-03-29] MEDS: ATORVASTATIN 10 MG TABLET PO SCH (08:31)
[2020-03-29] MEDS: TBO-FILGRASTIM 480 MCG/0.8 ML ML SQ SCH (14:33)
[2020-03-29 16:00] VITALS: BP 121/66
--- NOTE | 2020-03-29 16:30 | NUR ---
RN NOTE Received patient from Pernell AQUINO for CHAS.
--- NOTE | 2020-03-29 19:00 | NUR ---
RN CLOSING NOTE Patient is resting in bed, A/O x4m showing no signs of acute distress or SOB, stable on RA. IV line in the left hand #18g is clean and intact running NS @75ml/hour. All patient needs met, all due medications given. Patient is ambulatory, with BRP. Bed is in lowest position, side rails x2 in upright position, call light is within reach and patient is aware of how to call for assistance when needed. Will endorse to shift stacker.
--- NOTE | 2020-03-29 19:58 | NUR ---
RN NOTES RECEIVED PATIENT IN BED AWAKE ALERT ORIENTED X3-4 ON ROOM AIR, BREATHING NON-LABORED. ON ISOLATION PRECAUTION. SKIN WARM AND DRY TO TOUCH. PATIENT IS COMPLAINING THAT HER IV ACCESS ON LEFT HAND IS HURTING. ASSESSED IV SITE, NO OBVIOUS SIGNS OF REDNESS OR INFECTION, COMPLAINTS THAT THE SITE HURTS SO BAD EVERYTIME SHE MOVES HER LEFT HAND AND TOUCHES THE SITE. CHECKED AND FLUCHED WITH SALINE, INFUSING WELL, RESTARTED IVF BY AM NURSE, AND OFFERED TO RE IN INSERT A NEW SITE, PATIENT REFUSED AT THIS TIME, WILL CONTINUE TO MONITOR AND WILL FOLLOW UP. SAFETY PRECAUTIONS IN PLACE WITH BED IN THE LOWEST POSITION, BED LOCKED, BILATERAL SIDE RAILS UP, AND CALL LIGHT WITHIN EASY REACH OF THE PATIENT. WILL CONTINUE TO MONITOR ACCORDINGLY.
[2020-03-29 20:04] VITALS: BP 146/81
--- NOTE | 2020-03-29 20:23 | NUR ---
RN NOTES RE INSERTED A NEW PERIPHERAL IV LINE ON HER LEFT FOREARM G#22, DRESSING CLEAN DRY AND INTACT, REFUSED IVF AT THIS TIME, WILL FOLLOW UP. WILL MONITOR CLOSELY.
[2020-03-29 20:55] VITALS: BP 146/81
[2020-03-30] MEDS: CEFEPIME 2 GM in IV D5W 100 ML IV SCH ×2 (01:56→13:00)
--- NOTE | 2020-03-30 06:24 | NUR ---
RN NOTES ALL NEEDS ATTENDED AND MET. ABLE TO REST AND SLEPT AT INTERVALS, KEPT CLEAN WARM DRY AND COMFORTABLE. DENIES ANY PAIN OR DISCOMFORT. IV ACCESS INTACT AND PATENT. NO SIGNS OF INFILTRATION NOTED. SAFETY MEASURES IN PLACED, ASPIRATION PRECAUTION EMPHASIZED. CALL LIGHT WITH IN EASY REACH. WILL ENDORSE TO AM NURSE FOR CONTINUITY OF CARE.
[2020-03-30 08:34] LABS: CALCIUM, SERUM 8.9 mg/dL (8.5-10.1); CREATININE 0.9 mg/dL (0.6-1.3); POTASSIUM 3.8 mmol/L (3.5-5.1)
[2020-03-30 08:36] LABS: BASOPHILS % (AUTO) 0.7 % (0.0-2.0); HEMATOCRIT 27 % (33-45); HEMOGLOBIN 9.6 g/dL (11.5-14.8); LYMPHOCYTES # (AUTO) 0.4 /CMM (0.8-4.8); LYMPHOCYTES % (AUTO) 26.7 % (20.0-44.0); MEAN CORPUSCULAR HGB CONC 35 g/dl (31.0-36.0); MEAN CORPUSCULAR VOLUME 108 fL (82-100); MONOCYTES # (AUTO) 0.1 /CMM (0.1-1.30); MONOCYTES % (AUTO) 8.5 % (2.0-12.0); NEUTROPHILS % (AUTO) 62.1 % (43.0-81.0); RED BLOOD CELL COUNT(AUTO) 2.52 MIL/uL (4.0-5.2)
[2020-03-30 09:25] LABS: PLATELET COUNT (AUTO) 14 /CMM (150-450); WHITE BLOOD COUNT (AUTO) 1.6 K/uL (4.3-11.0)
[2020-03-30 10:08] LABS: BAND % (MANUAL) 2 % (0.0-5.0); EOSINOPHILS % (MANUAL) 1 % (0-4); LYMPHOCYTES % (MANUAL) 27 % (16-48); MONOCYTES % (MANUAL) 6 % (0-11.0); NEUTROPHILS % (MANUAL) 64 (42-76)
[2020-03-30] MEDS: TBO-FILGRASTIM 480 MCG/0.8 ML ML SQ SCH (12:00)
--- NOTE | 2020-03-30 13:15 | NUR ---
RN NOTE NON-ADMIN granix and cefepime, patient refused, she is being discharged.
--- NOTE | 2020-03-30 13:30 | NUR ---
TECHNICAL SOURCING RECRUITER NOTE Patient is medically stable for discharge. Patient is A/O x4, showing no signs of acute distress or SOB, stable on RA. Skin assessed and skin remains intact. IV removed, ID band removed. DC instructions provided and patient verbalized understanding. All belongings are with the patient. Patient is being picked up by daughter in private car. Patient left unit by wheelchair with the LEGAL ADMINISTRATIVE ASSISTANT.
== END 2020-03-30 13:30 | disposition home or self-care (01) | DRG 947 ==
LOC: ER 18:03 → TELE2 20:36 → MEDSG2 21:02 → MED 03-28 13:46 → TELE 03-29 07:08 → MED 03-29 12:31
PROVIDERS: ADMIT Nurse Practitioner Acute Care; ATTEND Family Medicine
DX: R53.1 Weakness (principal); D61.810 Antineoplastic chemotherapy induced pancytopenia; E87.1 Hypo-osmolality and hyponatremia; C79.60 Secondary malignant neoplasm of unspecified ovary; C79.89 Secondary malignant neoplasm of other specified sites; N17.9 Acute kidney failure, unspecified; T45.1X5A Adverse effect of antineoplastic and immunosuppressive drugs, initial encounter; Y92.89 Other specified places as the place of occurrence of the external cause; R50.81 Fever presenting with conditions classified elsewhere; E86.1 Hypovolemia; C57.00 Malignant neoplasm of unspecified fallopian tube; R73.9 Hyperglycemia, unspecified; G62.9 Polyneuropathy, unspecified; I51.7 Cardiomegaly; R55 Syncope and collapse
CPT/HCPCS: 36415; 71045-TC; 80048-TC; 80053-TC; 80061-TC; 80076-TC; 81000-TC; 82728-TC; 83540-TC; 83615-TC; 83735-TC; 84100-TC; 84443-TC; 84484-TC; 85025-TC; 85730-TC; 86140-TC; 87040-TC; 87081-TC; 87086-TC; 93307-TC; 93880-TC; 93970-TC; 97116-TC; 97530-TC; G0378; J0692; J1447; J2405; J7030; J7040; J7060